=== PATIENT | male | born 1940 | race Caucasian/White ===

== ENCOUNTER → 2018-01-31 | Outpatient (CLI) | payer OTHER ==
[2018-01-31 10:47] LABS: Blood Urea Nitrogen 19 mg/dL (9-20)
--- NOTE | 2018-01-31 11:50 | CT ---
EXAMINATION TYPE: CT abdomen pelvis w con DATE OF EXAM: 01/31/2018 COMPARISON: None HISTORY: Prostate cancer CT DLP: 1305 mGycm, Automated Exposure Control for Dose Reduction was Utilized. CONTRAST: CT scan of the abdomen and pelvis is performed with oral and with IV Contrast, patient injected with 100 mL of Isovue 300. FINDINGS: LUNG BASES: Dependent atelectasis right lung base is present. Partial visualization of at least moder ate to severe coronary artery calcification in the LAD and right circumflex distributions LIVER/GB: Cholecystectomy clips are present. PANCREAS: No significant abnormality is seen. SPLEEN: No significant abnormality is seen. ADRENALS: No significant abnormality is seen. KIDNEYS: There are 6-8 small scattered calculi throughout the right kidney measuring 3 mm or smaller in size, largest lower pole level coronal image 57 is marked for reference. Identified 8-10 small alonso culi scattered throughout the left kidney measuring up to 5 mm in size lower pole level coronal image 51. There is symmetric cortical medullary uptake and excretion from both kidneys without evidence of hydronephrosis identified bilaterally. There is suboptimal visualization of bladder due to streak ar tifact from metallic hip surgery. BOWEL: Small hiatal hernia is noted. The oral contrast reaches level of terminal ileum. There is no s uspicious small or large bowel dilatation. There is prominent diverticulosis throughout the entire co darrick including involvement in the right colon. There is no CT evidence for acute diverticulitis. Appcarter tamra is seen and felt within normal limits distending from medial aspect of cecum. PROSTATE/SEMINAL VESICLES: Suboptimal evaluation of prostate gland due to adjacent hip surgery. Visua lized portion does not appear suspiciously enlarged. LYMPH NODES: No greater than 1cm abdominal or pelvic lymph nodes are appreciated. OSSEOUS STRUCTURES: Metallic hardware from bilateral hip arthroplasties causes streak artifact limiti ng evaluation of pelvic structures. There is postsurgical change L4-S1 levels with posterior fusion h ardware. There is grade 1 anterolisthesis of L4 on L5 and subtle less prominent grade 1 anterolisthes is of L5 on S1. Advanced disc space narrowing at these levels with probable artificial disc material is noted. There is moderate to advanced disc space narrowing with endplate sclerosis and mild to mode rate anterior spurring L2-L3 level. There is fairly moderate multilevel anterior spurring in the mid to lower thoracic spine. There is vacuum disc phenomenon lower thoracic levels. There is fairly moder ate anterior and lateral spurring in the thoracic spine. No suspicious focal lytic or sclerotic lesio ns are identified. OTHER: There is mild to moderate calcified plaque of aorta extending into branch vessels. Distal ecta jose is present. Aorta measures up to 2.8 cm in diameter transversely axial image 51. No greater than 3 cm aneurysmal change is seen. There is tiny fat-containing umbilical hernia. IMPRESSION: 1. Suboptimal evaluation of pelvis, no obvious mass or adenopathy is seen to suggest metastatic malig mer. 2. Multiple bilateral renal calculi without hydronephrosis or obstructing ureter calculi seen bilater ally.
--- NOTE | 2018-01-31 14:11 | NM ---
EXAMINATION TYPE: NM bone scan whole body DATE OF EXAM: 01/31/2018 COMPARISON: Same day CT abdomen and pelvis study HISTORY: Prostate cancer. Delayed whole-body scanning was performed following the injection of 24 mCi Tc 99m MDP. Images acqui red 3 hours post injection. Whole body of projections in the anterior and posterior projections as we ll as spot images of the thorax abdomen and pelvis and bilateral knees are acquired. FINDINGS: There is no suspicious scintigraphic increased radiotracer uptake to suggest osseous metastatic disea se to the bone. There is lucency of bilateral hip joint level from known metallic prostheses. There is increased upt con mid lumbar spine presumed from degenerative change when correlating with CT. There is lucency fro m prosthesis in the left knee. There is diffuse radiotracer uptake surrounding right knee joint presu med product of degenerative change. Similar lucency right shoulder level is felt to reflect postsurgi alonso change or metallic hardware. Asymmetric increased uptake the left shoulder is presumed to reflect degenerative change at this level. Focus of increased uptake right lower lateral rib likely reflects residual healing fracture as patien t states had right rib fracture 6 months ago. IMPRESSION: No convincing scintigraphic evidence of metastatic disease to the bone.
== END | disposition home or self-care (01) ==
LOC: RADNMMAIN 09:55
PROVIDERS: ATTEND Urology
DX: C61 Malignant neoplasm of prostate (principal)
CPT/HCPCS: 82565; 84520; 74177; 36415; 78306; A9503; Q9967

== ENCOUNTER → 2018-05-17 | Outpatient (CLI) | payer OTHER | END | disposition home or self-care (01) | LOC: LABWHC1 14:43 | PROVIDERS: ATTEND Urology | DX: C61 Malignant neoplasm of prostate (principal) | CPT/HCPCS: 36415; 84153 ==

== ENCOUNTER → 2018-11-13 | Outpatient (CLI) | payer OTHER | END | disposition home or self-care (01) | LOC: LABWHC1 15:46 | PROVIDERS: ATTEND Urology | DX: C61 Malignant neoplasm of prostate (principal) | CPT/HCPCS: 36415; 84153 ==

== ENCOUNTER → 2020-05-23 | Outpatient (CLI) | payer OTHER | END | disposition home or self-care (01) | LOC: LABWHC1 09:25 | PROVIDERS: ATTEND Urology | DX: C61 Malignant neoplasm of prostate (principal) | CPT/HCPCS: 36415; 84153 ==

== ENCOUNTER → 2020-06-11 | Outpatient (CLI) | payer OTHER ==
--- NOTE | 2020-06-11 18:35 | US ---
EXAMINATION TYPE: US thyroid st tissue head/neck DATE OF EXAM: 06/11/2020 COMPARISON: NONE CLINICAL HISTORY: 79-year-old male E03.9 HYPOTHYROIDISM. Just started taking thyroid medication. TECHNIQUE: Multiple sonographic images of the thyroid gland are obtained. FINDINGS: GLAND SIZE: Right Lobe: 4.5 x 1.3 x 1.1 cm Overall Parenchyma: Slightly heterogenous Left Lobe: 3.6 x 1.0 x 1.0 cm Overall Parenchyma: Slightly heterogeneous Isthmus Thickness: 0.2 cm NODULES RIGHT: No nodule seen. LEFT: no nodules seen ISTHMUS: # of nodules measured in the isthmus: 0 Electrical Plumbing Supervisor notes: Bilateral neck scanned: no evidence of lymphadenopathy. IMPRESSION: No discrete nodule. Thyroid gland measurements as above.
== END | disposition home or self-care (01) ==
LOC: RADUSWWP 14:38
DX: E07.89 Other specified disorders of thyroid (principal); E03.9 Hypothyroidism, unspecified; Z88.1 Allergy status to other antibiotic agents; Z88.8 Allergy status to other drugs, medicaments and biological substances; Z88.5 Allergy status to narcotic agent
CPT/HCPCS: 76536

== ENCOUNTER → 2022-06-14 | Outpatient (CLI) | payer OTHER | END | disposition home or self-care (01) | LOC: LABWHC1 10:56 | PROVIDERS: ATTEND Urology | DX: C61 Malignant neoplasm of prostate (principal) | CPT/HCPCS: 36415; 84153 ==

== ENCOUNTER 2023-05-24 15:24 | Emergency (ER) | payer OTHER ==
--- NOTE | 2023-05-24 15:41 | ED ---
General Adult HPI - General Source: patient, RN notes reviewed Mode of arrival: ambulatory Limitations: no limitations <Chad Marie - Last Filed: 05/24/23 15:40> <Geovany Connor - Last Filed: 05/24/23 19:05> - General Chief complaint: Recheck/Abnormal Lab/Rx Stated complaint: HTN Time Seen by Provider: 05/24/23 15:40 - History of Present Illness Initial comments: 82-year-old male presents emergency Department chief complaint of hypertension. Patient sent in from urgent care. He went to [facility] in [place] 5 days ago was advised to check his blood pressure because it was elevated. He is almost certain states he twisted it today. (Chad Marie) This is an 82-year-old male who presents to the emergency department because his blood pressures been running high and when he went to an urgent care they told him to get to the emergency department immediately. Patient states he did have a little bit of a headache and some squiggly lines in his vision is morning that lasted between 15-30 seconds and hasn't occurred since. Patient denies any chest pain difficulty breathing shortness of breath. Patient denies any numbness or weakness. Patient denies abdominal pain patient denies nausea vomiting diarrhea. Patient states he takes losartan 100 mg and he does not miss any doses. Patient currently has no symptoms. (Geovany Connor) - Related Data Home Medications Medication Instructions Recorded Confirmed Celecoxib [CeleBREX] 200 mg PO DAILY 10/21/14 10/21/14 Cholecalciferol [Vitamin D3] 2,500 unit PO DAILY@1200 10/21/14 10/21/14 Finasteride 0.5 mg PO DAILY 10/21/14 10/21/14 Losartan [Cozaar] 50 mg PO DAILY 10/21/14 10/21/14 Omeprazole 40 mg PO AC-BRKFST 10/21/14 10/21/14 Simvastatin [Zocor] 20 mg PO HS 10/21/14 10/21/14 Tamsulosin [Flomax] 0.4 mg PO DAILY 10/21/14 10/21/14 Ubidecarenone [Co Q-10] 100 mg PO DAILY 10/21/14 10/21/14 Previous Rx's Medication Instructions Recorded Metoprolol Succinate [Metoprolol 25 mg PO DAILY #10 tab 05/24/23 Succinate ER] Allergies Allergy/AdvReac Type Severity Reaction Status Date / Time morphine AdvReac Nausea Verified 05/24/23 15:38 Review of Systems ROS Other: All systems not noted in ROS Statement are negative. <Chad Marie - Last Filed: 05/24/23 15:40> ROS Other: All systems not noted in ROS Statement are negative. <Geovany Connor - Last Filed: 05/24/23 19:05> ROS Statement: Those systems with pertinent positive or pertinent negative responses have been documented in the HPI. Past Medical History Past Medical History: GERD/Reflux, Hearing Disorder / Deafness, Hyperlipidemia, Hypertension Additional Past Medical History / Comment(s): h hernia; psoriasis History of Any Multi-Drug Resistant Organisms: None Reported Past Surgical History: Back Surgery, Cholecystectomy, Hernia Repair, Joint Replacement Additional Past Surgical History / Comment(s): colonoscopy Past Anesthesia/Blood Transfusion Reactions: No Reported Reaction Additional Past Anesthesia/Blood Transfusion Reaction / Comment(s): states diff. to wake up last time Past Alcohol Use History: Rare Past Drug Use History: None Reported - Past Family History Mother Family Medical History: No Reported History <Chad Marie - Last Filed: 05/24/23 15:40> General Exam Limitations: no limitations <Chad Marie - Last Filed: 05/24/23 15:40> <Geovany Connor - Last Filed: 05/24/23 19:05> - General Exam Comments Initial Comments: Visual Physical Exam Vital signs reviewed General: Well-appearing, nontoxic, no acute distress. Head: Normocephalic, atraumatic Eyes: PERRLA, EOMI ENT: Airway patent Chest: Nonlabored breathing Skin: No visual rash, normal skin tone Neuro: Alert and oriented 3 Musculoskeletal: No gross abnormalities (Chad Marie) GENERAL: Patient is well-developed and well-nourished. Patient is nontoxic and well- hydrated and is in no acute distress. ENT: Neck is soft and supple. No significant lymphadenopathy is noted. Oropharynx is clear. Moist mucous membranes. Neck has full range of motion without eliciting any pain. EYES: The sclera were anicteric and conjunctiva were pink and moist. Extraocular movements were intact and pupils were equal round and reactive to light. Eyelids were unremarkable. PULMONARY: Unlabored respirations. Good breath sounds bilaterally. No audible rales rhonchi or wheezing was noted. CARDIOVASCULAR: There is a regular rate and rhythm without any murmurs gallops or rubs. ABDOMEN: Soft and nontender with normal bowel sounds. SKIN: Skin is clear with no lesions or rashes and otherwise unremarkable. NEUROLOGIC: Patient is alert and oriented x3. Cranial nerves II through XII are grossly intact. Motor and sensory are also intact. Normal speech, volume and content. Symmetrical smile. MUSCULOSKELETAL: Normal extremities with adequate strength and full range of motion. LYMPHATICS: No significant lymphadenopathy is noted PSYCHIATRIC: Normal psychiatric evaluation. (Geovany Connor) Course Vital Signs 05/24/23 05/24/23 05/24/23 15:34 16:47 16:53 Temperature 98.1 F 98.1 F 98.1 F Pulse Rate 84 78 78 Respiratory 18 18 16 Rate Blood Pressure 180/112 226/126 226/126 O2 Sat by Pulse 99 97 96 Oximetry 05/24/23 05/24/23 17:38 18:17 Temperature 98.2 F 98.2 F Pulse Rate 83 79 Respiratory 16 16 Rate Blood Pressure 184/88 166/76 O2 Sat by Pulse 99 97 Oximetry Medical Decision Making <Chad Marie - Last Filed: 05/24/23 15:40> - Lab Data Result diagrams: 05/24/23 16:23 05/24/23 16:23 <Geovany Connor - Last Filed: 05/24/23 19:05> - Medical Decision Making I completed the quick note portion of this chart signed Chad Marie PA-C (Chad Marie) Was pt. sent in by a medical professional or institution (ALBERT Sr, MECHANICAL LABORATORY TECHNICIAN, urgent care, hospital, or skilled nursing...) When possible be specific @ -A 6 physician sent him to the hospital to be evaluated Did you speak to anyone other than the patient for history (EMS, parent, family, police, friend...)? What history was obtained from this source @ -No Did you review nursing and triage notes (agree or disagree)? Why? @ -I reviewed and agree with nursing and triage notes Were old charts reviewed (outside hosp., previous admission, EMS record, old EKG, old radiological studies, urgent care reports/EKG's, skilled nursing records)? Report findings @ -I reviewed prior charting and prior labs on this patient Differential Diagnosis (chest pain, altered mental status, abdominal pain women, abdominal pain men, vaginal bleeding, weakness, fever, dyspnea, syncope, headache, dizziness, GI bleed, back pain, seizure, CVA, palpatations, mental health, musculoskeletal)? @ -Differential Headache: Migraine, tension, cluster, carbon monoxide, central venous thrombosis, temporal arteritis, acute closure glaucoma, intercranial hemorrhage, mastoiditis, sinusitis, head injury, this is not meant to be an all-inclusive list. EKG interpreted by me (3pts min.). @ -As above X-rays interpreted by me (1pt min.). @ -None done CT interpreted by me (1pt min.). @ -Brain shows no acute abnormality U/S interpreted by me (1pt. min.). @ -None done What testing was considered but not performed or refused? (CT, X-rays, U/S, labs)? Why? @ -None What meds were considered but not given or refused? Why? @ -None Did you discuss the management of the patient with other professionals (professionals i.e. , PA, MECHANICAL LABORATORY TECHNICIAN, lab, RT, psych nurse, social media marketer, head char filter tank tender, teacher, real estate officer, case management coordinator)? Give summary @ -No Was smoking cessation discussed for >3mins.? @ -No Was critical care preformed (if so, how long)? @ -No Were there social determinants of health that impacted care today? How? (Homelessness, low income, unemployed, alcoholism, drug addiction, trans portation, low edu. Level, literacy, decrease access to med. care, penitentiary, rehab)? @ -No Was there de-escalation of care discussed even if they declined (Discuss DNR or withdrawal of care, Hospice)? DNR status @ -No What co-morbidities impacted this encounter? (DM, HTN, Smoking, COPD, CAD, Cancer, CVA, ARF, Chemo, Hep., AIDS, mental health diagnosis, sleep apnea, morbid obesity)? @ -None Was patient admitted / discharged? Hospital course, mention meds given and route, prescriptions, significant lab abnormalities, going to OR and other pertinent info. @ -She was given hydralazine for high blood pressure and brought her pressure down nicely. Patient remained asymptomatic throughout his ED stay. Undiagnosed new problem with uncertain prognosis? @ -No Drug Therapy requiring intensive monitoring for toxicity (Heparin, Nitro, Insulin, Cardizem)? @ -No Were any procedures done? @ -No Diagnosis/symptom? @ -hypertensive urgency Acute, or Chronic, or Acute on Chronic? @ -Acute Uncomplicated (without systemic symptoms) or Complicated (systemic symptoms)? @ -Complicated Side effects of treatment? @ -No Exacerbation, Progression, or Severe Exacerbation? @ -No Poses a threat to life or bodily function? How? (Chest pain, USA, [place], pneumonia, PE, COPD, DKA, ARF, appy, cholecystitis, CVA, Diverticulitis, Homicidal, Suicidal, threat to staff... and all critical care pts) @ -No (Geovany Connor) - Lab Data Lab Results 05/24/23 05/24/23 05/24/23 Range/Units 16:23 16:23 17:18 WBC 7.1 (3.8-10.6) k/uL RBC 4.52 (4.30-5.90) m/uL Hgb 14.5 (13.0-17.5) gm/dL Hct 41.5 (39.0-53.0) % MCV 91.6 (80.0-100.0) fL MCH 32.0 (25.0-35.0) pg MCHC 34.9 (31.0-37.0) g/dL RDW 13.2 (11.5-15.5) % Plt Count 240 (150-450) k/uL MPV 7.5 Neutrophils % 79 % Lymphocytes % 13 % Monocytes % 5 % Eosinophils % 2 % Basophils % 0 % Neutrophils # 5.5 (1.3-7.7) k/uL Lymphocytes # 0.9 L (1.0-4.8) k/uL Monocytes # 0.3 (0-1.0) k/uL Eosinophils # 0.1 (0-0.7) k/uL Basophils # 0.0 (0-0.2) k/uL Sodium 141 (137-145) mmol/L Potassium 4.4 (3.5-5.1) mmol/L Chloride 107 (98-107) mmol/L Carbon Dioxide 22 (22-30) mmol/L Anion Gap 12 mmol/L BUN 18 (9-20) mg/dL Creatinine 0.86 (0.66-1.25) mg/dL Est GFR (CKD-EPI)AfAm >90 (>60 ml/min/1.73 sqM) Est GFR (CKD-EPI)NonAf 80 (>60 ml/min/1.73 sqM) Glucose 90 (74-99) mg/dL Calcium 9.8 (8.4-10.2) mg/dL Total Bilirubin 0.6 (0.2-1.3) mg/dL AST 38 (17-59) U/L ALT 22 (4-49) U/L Alkaline Phosphatase 78 (38-126) U/L Troponin I <0.012 (0.000-0.034) ng/mL Total Protein 6.9 (6.3-8.2) g/dL Albumin 4.6 (3.5-5.0) g/dL Disposition <Chad Marie - Last Filed: 05/24/23 15:40> Is patient prescribed a controlled substance at d/c from ED?: No Time of Disposition: 19:02 <Geovany Connor - Last Filed: 05/24/23 19:05> Clinical Impression: Hypertensive urgency Disposition: HOME SELF-CARE Condition: Good Additional Instructions: Patient is to follow-up with a primary medical care doctor Prescriptions: Metoprolol Succinate [Metoprolol Succinate ER] 25 mg PO DAILY #10 tab Referrals: [facility] [Primary Care Provider] - 1-2 days
[2023-05-24 16:31] LABS: Basophils % (A) 0 %; Eosinophils # (A) 0.1 k/uL (0-0.7); Eosinophils % (A) 2 %; HCT 41.5 % (39.0-53.0); HGB 14.5 gm/dL (13.0-17.5); Lymphocytes # (A) 0.9 k/uL (1.0-4.8); Lymphocytes % (A) 13 %; MCHC 34.9 g/dL (31.0-37.0); MCV 91.6 fL (80.0-100.0); Mean Platelet Volume 7.5; Monocytes # (A) 0.3 k/uL (0-1.0); Monocytes % (A) 5 %; Neutrophils # (A) 5.5 k/uL (1.3-7.7); Neutrophils % (A) 79 %; Platelet Count 240 k/uL (150-450); RBC 4.52 m/uL (4.30-5.90); RDW 13.2 % (11.5-15.5); WBC 7.1 k/uL (3.8-10.6)
[2023-05-24 16:46] LABS: ALT 22 U/L (4-49); AST 38 U/L (17-59); African American GFR (CKD) >90 (>60 ml/min/1.73 sqM); Albumin 4.6 g/dL (3.5-5.0); Alkaline Phosphatase 78 U/L (38-126); Anion Gap 12 mmol/L; Blood Urea Nitrogen 18 mg/dL (9-20); Calcium 9.8 mg/dL (8.4-10.2); Carbon Dioxide 22 mmol/L (22-30); Chloride 107 mmol/L (98-107); Glucose 90 mg/dL (74-99); Non-African American GFR(CKD) 80 (>60 ml/min/1.73 sqM); Potassium 4.4 mmol/L (3.5-5.1); Sodium 141 mmol/L (137-145); Total Bilirubin 0.6 mg/dL (0.2-1.3); Total Protein 6.9 g/dL (6.3-8.2)
[2023-05-24] MEDS ORDERED: hydrALAZINE HCL 20 MG/ML 1 ML VIAL IVP STA (17:08)
[2023-05-24 17:21] VITALS: RESP 16
--- NOTE | 2023-05-24 17:37 | CT ---
EXAMINATION TYPE: CT brain wo con CT DLP: 1171.9 mGycm, Automated exposure control for dose reduction was used. DATE OF EXAM: 05/24/2023 5:28 PM COMPARISON: None. CLINICAL INDICATION:Male, 82 years old with history of High blood pressure, headache, htn TECHNIQUE: Brain: Axial CT images of the brain were obtained with coronal and sagittal reformats created and rev iewed. Contrast used: None. Oral contrast used: None. FINDINGS: Brain: Extra-axial spaces: No abnormal extra-axial fluid collections. Ventricular system: Dilatation in proportion to cerebral atrophy. Cerebral parenchyma: Cerebral atrophy. No acute intraparenchymal hemorrhage or mass effect. The abrams -white junction is well differentiated. Scattered hypoattenuating areas are seen within the white mat ter. Cerebellum: Unremarkable. Mass effect: No evidence of midline shift. Intracranial vasculature: unremarkable Soft tissues: Normal. Calvarium/osseous structures: No depressed skull fracture. Paranasal sinuses and mastoid air cells: Mild scattered paranasal sinus disease. Visualized orbits: Orbital contents are intact. IMPRESSION: 1. No acute intracranial process. 2. Nonspecific white matter changes, likely secondary to chronic small vessel ischemic disease.
[2023-05-24 19:34] VITALS: BP 160/84; PULSE 77; TEMP 98
== END 2023-05-24 19:24 | disposition home or self-care (01) ==
LOC: EC 15:24
DX: I16.0 Hypertensive urgency (principal); I44.0 Atrioventricular block, first degree; I10 Essential (primary) hypertension; K21.9 Gastro-esophageal reflux disease without esophagitis; E78.5 Hyperlipidemia, unspecified; Z79.899 Other long term (current) drug therapy; Z88.5 Allergy status to narcotic agent
CPT/HCPCS: 36415; 93005; 80053; 84484; 85025; 70450; 99284; 96374; J0360

== ENCOUNTER → 2023-06-22 | Outpatient (CLI) | payer OTHER | END | disposition home or self-care (01) | LOC: LABWHC1 08:37 | PROVIDERS: ATTEND Urology | DX: C61 Malignant neoplasm of prostate (principal) | CPT/HCPCS: 36415; 84153 ==

== ENCOUNTER 2024-04-04 02:00 | Emergency (ER) | payer OTHER ==
[2024-04-04 02:13] VITALS: RESP 20
[2024-04-04] MEDS: HYDROmorphone 1 MG/ML 1 ML SYRINGE IM STA ×2 (02:44→04:48)
--- NOTE | 2024-04-04 03:26 | ED ---
General Adult HPI - General Chief complaint: Extremity Injury, Lower Stated complaint: Knee pain Time Seen by Provider: 04/04/24 02:25 Source: patient, EMS, RN notes reviewed, old records reviewed Mode of arrival: EMS - History of Present Illness Initial comments: Patient is an 83-year-old male presents emergency department complaint of right knee pain. Patient had atraumatic right knee pain. Seems to be a chronic issue as he presents with a knee stabilizer in place. States this is a recurrent issue when he moves wrong. Denies any trauma. Denies any numbness distally. Presents for further evaluation at this time. Scheduled to have surgery with Dr. Cao. - Related Data Home Medications Medication Instructions Recorded Confirmed Celecoxib [CeleBREX] 200 mg PO DAILY 10/21/14 10/21/14 Cholecalciferol [Vitamin D3] 2,500 unit PO DAILY@1200 10/21/14 10/21/14 Finasteride 0.5 mg PO DAILY 10/21/14 10/21/14 Losartan [Cozaar] 50 mg PO DAILY 10/21/14 10/21/14 Omeprazole 40 mg PO AC-BRKFST 10/21/14 10/21/14 Simvastatin [Zocor] 20 mg PO HS 10/21/14 10/21/14 Tamsulosin [Flomax] 0.4 mg PO DAILY 10/21/14 10/21/14 Ubidecarenone [Co Q-10] 100 mg PO DAILY 10/21/14 10/21/14 Previous Rx's Medication Instructions Recorded Metoprolol Succinate [Metoprolol 25 mg PO DAILY #10 tab 05/24/23 Succinate ER] Allergies Allergy/AdvReac Type Severity Reaction Status Date / Time morphine AdvReac Nausea Verified 04/04/24 02:12 Review of Systems ROS Statement: Those systems with pertinent positive or pertinent negative responses have been documented in the HPI. Review of Systems: CONST: Denies fever EYES: Denies blurry vision ENT: Denies nasal congestion C/V: Denies Chest pain RESP: Denies shortness of breath GI: Denies abdominal pain : Denies dysuria SKIN: Denies rash. MSK: Endorses atraumatic right knee pain. NEURO: Denies headache ROS Other: All systems not noted in ROS Statement are negative. Past Medical History Past Medical History: GERD/Reflux, Hearing Disorder / Deafness, Hyperlipidemia, Hypertension Additional Past Medical History / Comment(s): h hernia; psoriasis History of Any Multi-Drug Resistant Organisms: None Reported Past Surgical History: Back Surgery, Cholecystectomy, Hernia Repair, Joint Replacement Additional Past Surgical History / Comment(s): colonoscopy Past Anesthesia/Blood Transfusion Reactions: No Reported Reaction Additional Past Anesthesia/Blood Transfusion Reaction / Comment(s): states diff. to wake up last time Smoking Status: Unknown if ever smoked Past Alcohol Use History: Rare Past Drug Use History: None Reported - Past Family History Mother Family Medical History: No Reported History General Exam - General Exam Comments Initial Comments: General: Appears in no acute distress. HEAD: Normal with no signs of head trauma. EYES: EOMI. ENT: Hard of hearing RESPIRATORY: No respiratory distress. C/V: Regular rate and rhythm. ABD: Abdomen is nondistended. EXT: No obvious deformity. Nonfocal right knee tenderness to palpation. Patient is able to flex and extend the knee although it is limited secondary to pain. Seems to be a chronic issue. Neurovascular intact distal to the knee. No obvious deformities. SKIN: No rashes or lesions observed on exposed skin. NEURO: Alert and oriented. Course Vital Signs 04/04/24 02:07 Temperature 98.7 F Pulse Rate 89 Respiratory 20 Rate Blood Pressure 175/93 O2 Sat by Pulse 95 Oximetry Medical Decision Making - Medical Decision Making Was pt. sent in by a medical professional or institution ([facility], TIMBER WATCHMAN, urgent care, hospital, or senior care...) When possible be specific @ -No Did you speak to anyone other than the patient for history (EMS, parent, family, police, friend...)? What history was obtained from this source @ -No Did you review nursing and triage notes (agree or disagree)? Why? @ -I reviewed and agree with nursing and triage notes Were old charts reviewed (outside hosp., previous admission, EMS record, old EKG, old radiological studies, urgent care reports/EKG's, senior care records)? Report findings @ -No old charts were reviewed Differential Diagnosis (chest pain, altered mental status, abdominal pain women, abdominal pain men, vaginal bleeding, weakness, fever, dyspnea, syncope, headache, dizziness, GI bleed, back pain, seizure, CVA, palpatations, mental health, musculoskeletal)? @ -Differential Musculoskeletal Muscular strain, contusion, ligament sprain, fracture, arthritis, septic arthritis, bursitis, cellulitis, muscle spasm, nerve compression, DVT, arterial occlusion, herpes zoster, electrolyte abnormality, tumor.... This is not meant to be in all inclusive list EKG interpreted by me (3pts min.). @ -None done X-rays interpreted by me (1pt min.). @ -Right knee x-ray reveals arthritic and degenerative changes of the right knee without any obvious acute fracture or injury.Patient does have a knee joint effusion which is chronic. CT interpreted by me (1pt min.). @ -None done U/S interpreted by me (1pt. min.). @ -None done What testing was considered but not performed or refused? (CT, X-rays, U/S, labs)? Why? @ -None What meds were considered but not given or refused? Why? @ -None Did you discuss the management of the patient with other professionals (professionals i.e. , PA, TIMBER WATCHMAN, lab, RT, psych nurse, social sciences professor, medical voucher clerk, teacher, bank secrecy act officer, director of casework)? Give summary @ -No Was smoking cessation discussed for >3mins.? @ -No Was critical care preformed (if so, how long)? @ -No Were there social determinants of health that impacted care today? How? (Homelessness, low income, unemployed, alcoholism, drug addiction, tr ansportation, low edu. Level, literacy, decrease access to med. care, long term, rehab)? @ -No Was there de-escalation of care discussed even if they declined (Discuss DNR or withdrawal of care, Hospice)? DNR status @ -No What co-morbidities impacted this encounter? (DM, HTN, Smoking, COPD, CAD, Cancer, CVA, ARF, Chemo, Hep., AIDS, mental health diagnosis, sleep apnea, morbid obesity)? @ -None Was patient admitted / discharged? Hospital course, mention meds given and route, prescriptions, significant lab abnormalities, going to OR and other pertinent info. @ -Patient presents with acute on chronic right knee pain. Atraumatic injury. Vitals within acceptable limits. We will obtain x-rays of the right knee and patient will be given IM analgesia medications. Patient was in agreement this p andrew. Vitals are within acceptable limits. Patient will be given a knee immobilizer. Discussed the results of his x-ray. Recommended following up with his surgeon, Dr. Perea. he may require MRI which cannot be provided here in the department. Patient was in agreement this plan. He will be discharged home at this time. I instructed the patient to follow up with their PCP in the next 1-3 days. I provided contact information for follow up with his surgeon Dr. Perea. I explained that the patient should return to the emergency department if they experience any worsening symptoms. Strict return precautions were discussed with the patient. The patient expressed understanding of these instructions. I answered all questions that the patient had. The patient was discharged home in good condition with their prescriptions and follow up information. Undiagnosed new problem with uncertain prognosis? @ -No Drug Therapy requiring intensive monitoring for toxicity (Heparin, Nitro, Insulin, Cardizem)? @ -No Were any procedures done? @ -No Diagnosis/symptom? @ -Right knee sprain Acute, or Chronic, or Acute on Chronic? @ -Acute on chronic Uncomplicated (without systemic symptoms) or Complicated (systemic symptoms)? @ -Uncomplicated Side effects of treatment? @ -None Exacerbation, Progression, or Severe Exacerbation] @ -No Poses a threat to life or bodily function? @ -No Disposition Clinical Impression: Right knee sprain Disposition: HOME SELF-CARE Condition: Good Instructions (If sedation given, give patient instructions): Knee Sprain (ED) Additional Instructions: Diagnosis is right knee sprain, right knee osteoarthritis. Follow-up with your orthopedic surgeon Dr. Perea. Return if worsening symptoms. You may need an MRI to evaluate tendons and ligaments further. Is patient prescribed a controlled substance at d/c from ED?: No Referrals: [facility],Clinic [Primary Care Provider] - 1-2 days Nicola Perea MD [STAFF PHYSICIAN] - 1-2 days Time of Disposition: 04:00
--- NOTE | 2024-04-04 04:42 | XR ---
EXAM: XR Right Knee, 1 or 2 Views CLINICAL HISTORY: ITS.REASON XR Reason: pain TECHNIQUE: Frontal and/or lateral views of the right knee. COMPARISON: None FINDINGS: Bones/joints: No displaced fracture or dislocation identified. Severe degenerative change in the lateral compartment. Mild to moderate degenerative change in the medial and patellofemoral compartments. Moderate to large knee joint effusion. Osteopenia. No bony lesion. Soft tissues: Soft tissue swelling No radiopaque foreign body identified. . Other: Vascular calcifications. IMPRESSION: 1. No displaced fracture or dislocation identified. 2. Moderate to large knee joint effusion. Further evaluation could be performed with CT or MRI if clinically indicated.
[2024-04-04] MEDS: ACET/COD 300 MG/30 MG STARTER PACK 6 TAB BTL PO STA (04:52)
[2024-04-04 06:22] VITALS: BP 153/87; PULSE 88; TEMP 97.8
== END 2024-04-04 06:23 | disposition home or self-care (01) ==
LOC: EC 02:00
CPT/HCPCS: 96372; 99283

== ENCOUNTER → 2024-12-28 | Outpatient (CLI) | payer OTHER | END | disposition home or self-care (01) | LOC: LABPAT 15:26 | PROVIDERS: ATTEND Orthopaedic Surgery | DX: Z01.812 Encounter for preprocedural laboratory examination (principal); Z22.322 Carrier or suspected carrier of Methicillin resistant Staphylococcus aureus; M17.11 Unilateral primary osteoarthritis, right knee | CPT/HCPCS: 87070 ==